=== PATIENT | female | born 1955 | race Caucasian/White ===

== ENCOUNTER 2017-05-09 16:06 | Observation (INO) | payer BC ==
[~2017-05-09] VITALS: Ht 177.8 cm; Wt 111.5 kg
[~2017-05-09 16:06] MED LIST: ASPIR-TRIN325 M1 PO; ATIVAN0.5 MG PO; Aspirin PO; BENTYL10 MG PO; CIPRO750 MG PO; CYANOCOBALAM1000 MCG PO; Colchicine,Colcrys PO; ERGOCALCIF50000 UNIT PO; FIORICET 50-301 EACH PO; FLEXERIL10 MG PO; MOTRIN800 MG PO; NEXIUM40 MG PO; PERCOCET 5/31 TABLET PO; PROMETHAZINE HC25 M1 PO; SYNTHROID88 MCG PO; TUMS500 MG PO; VITAMIN D-3 401 EACH PO
[2017-05-09 16:58] LABS: HEMATOCRIT 31.6 % (36.0-46.0); MCH 25.8 PG (29.0-34.0); MCHC 31.6 G/DL (30.0-36.0); MCV 81.4 FL (83-99); PLATELET COUNT 269 K/uL (156-360); RBC DIS.WIDTH-CV 16.3 % (11.8-14.6); RBC DIS.WIDTH-SD 48.5 % (39-53); RED BLOOD COUNT 3.88 M/uL (3.80-5.20); WHITE BLOOD COUNT 5.9 K/uL (4.1-10.2)
[2017-05-09 17:09] LABS: CHLORIDE 112 mEq/L (99-109); POTASSIUM 4.2 mEq/L (3.7-5.4); SODIUM 143 mEq/L (136-147)
[2017-05-09 17:11] LABS: GLUCOSE 99 mg/dL (70-99)
[2017-05-09 17:15] LABS: CREATININE 0.7 mg/dL (0.6-1.3); GFR ESTIMATE (CALCULATED) > 59 mL/min/
[2017-05-09 17:16] LABS: UREA NITROGEN (BUN) 9 mg/dL (9-23)
[2017-05-09 17:23] LABS: TROP-I INTERPRETATION NEGATIVE; TROPONIN-I < 0.01 ng/mL (0.0-0.30)
[2017-05-09 21:10] VITALS: BP 152/72
[2017-05-09 21:17] LABS: C-REACTIVE PROTEIN 2.7 MG/L (0-10)
[2017-05-09 22:08] LABS: THYROTROPIN (TSH) 1.6 MIU/L (0.4-5.5)
[2017-05-10 00:02] LABS: TROP-I INTERPRETATION NEGATIVE; TROPONIN-I < 0.01 ng/mL (0.0-0.30)
[2017-05-10 00:36] VITALS: BP 115/62
[2017-05-10 05:00] VITALS: BP 109/61
[2017-05-10 07:18] LABS: HEMATOCRIT 29.4 % (36.0-46.0); HEMOGLOBIN 9.1 G/DL (11.9-15.5); MCH 25.4 PG (29.0-34.0); MCV 82.1 FL (83-99); PLATELET COUNT 235 K/uL (156-360); RBC DIS.WIDTH-CV 16.4 % (11.8-14.6); RBC DIS.WIDTH-SD 49.1 % (39-53); RED BLOOD COUNT 3.58 M/uL (3.80-5.20)
[2017-05-10 07:38] LABS: TROP-I INTERPRETATION NEGATIVE; TROPONIN-I < 0.01 ng/mL (0.0-0.30)
[2017-05-10 07:44] VITALS: BP 117/67
[2017-05-10 07:46] LABS: CHLORIDE 110 MEQ/L (99-109); CREATININE 0.6 MG/DL (0.6-1.3); GFR ESTIMATE (CALCULATED) > 59 mL/min/; GLUCOSE 96 mg/dL (70-99); POTASSIUM 3.7 MEQ/L (3.7-5.4); SODIUM 143 MEQ/L (136-147); UREA NITROGEN (BUN) 10 mg/dL (9-23)
[2017-05-10 11:27] VITALS: BP 113/60
[2017-05-10] MEDS ORDERED: ASPIR 8181 M1 PO (11:42)
[2017-05-10] MEDS ORDERED: Colchicine,Colcrys PO (11:43)
[2017-05-10] MEDS ORDERED: MEDROL DOSEPAK4 MG PO (11:43)
== END 2017-05-10 13:36 | disposition home or self-care (01) ==
LOC: EME 16:06 → EDOF 20:04 → 5WEST 20:04 → EDOF 20:04 → ENRESERV 20:06 → 5WEST 21:05 → ENPENDDIS 05-10 → 5WEST 05-10 13:36
PROVIDERS: Physician Assistant
DX: R07.89 Other chest pain (principal); D64.9 Anemia, unspecified; M79.89 Other specified soft tissue disorders; R06.02 Shortness of breath; M25.512 Pain in left shoulder; M79.602 Pain in left arm; E03.9 Hypothyroidism, unspecified; Z86.19 Personal history of other infectious and parasitic diseases; K21.9 Gastro-esophageal reflux disease without esophagitis; F32.9 Major depressive disorder, single episode, unspecified; Z98.84 Bariatric surgery status; Z79.82 Long term (current) use of aspirin; Z90.710 Acquired absence of both cervix and uterus; Z82.49 Family history of ischemic heart disease and other diseases of the circulatory system; Z82.3 Family history of stroke; Z87.891 Personal history of nicotine dependence
CPT/HCPCS: 71046; 71275; 80048; 83880; 84443; 84484; 85027; 85652; 86140; 93005; 93306; 99281; 99285; G0378; J1644